=== PATIENT | female | born 2000 | race Hispanic/Latino ===

== ENCOUNTER 2024-09-23 19:46 | Emergency (ER) | payer OTHER, SELFPAY ==
[2024-09-23 19:53] VITALS: BP 159/92; PULSE 104; RESP 15; TEMP 37.1; O2SAT 100
--- OUTSIDE RECORDS SUMMARY | 2024-09-23 20:13 | XMS_ITS | Clinical Summary ---
Author Organization [facility] Address [address] [place] [address] Care Team Providers Care Lpn Name Role Phone Aj Hernandez MD Primary Care Provider [phone] Allergies No known active allergies Medications vitamin ferrous fumarate-folic () 28 mg iron- 800 mcg tabletIndications :Encounter for supervision of other normal in third trimester Take 1 tablet by mouth daily 1 po qd 90 tablet 3 12/16/19 24 025 Active ibuprofen (ADVIL,MOTRIN) 600 mg tabletIndications :Cramps Take 1 tablet (600 mg total) by mouth every 6 (six) hours 120 tablet 02/15/20 24 Active PNV with usfqbdm-mgsg-UV 27 mg iron- 1 mg tabletIndications :Vitamin Deficiency Prevention Take 1 tablet by mouth daily 30 tablet 3 02/15/20 24 Active polyethylene glycol (MIRALAX) 17 gram/dose bulk powderIndications :constipation Take 17 g by mouth daily 595 g 1 02/15/20 24 Active acetaminophen (TYLENOL) 325 mg tablet Take 2 tablets (650 mg total) by mouth every 6 (six) hours as needed for pain 120 tablet 02/15/20 24 Active docusate sodium (COLACE) 100 mg capsuleIndication s:constipation,St ool Softener Take 1 capsule (100 mg total) by mouth 2 (two) times a day as needed for constipation 30 capsule 02/16/20 24 Active norethindrone (MICRONOR) 0.35 mg tabletIndications : Contraception Take 1 tablet (0.35 mg total) by mouth daily 28 tablet 12 02/16/20 24 025 Active Active Problems Problem Noted Date Diagnosed Date Normal labor 02/14/2024 care following vaginal delivery 02/13 Overview (02/16/2024): # ID: Afebrile. No signs/symptoms of infection. # Heme: EBL 200 mL. Hemodynamically stable. Admit Hgb 13.5. # CV/Pulm: MR BPs <4h apart prior to delivery, not meeting criteria for gHTN. Asymptomatic; denies visual changes, BERRIOS, RUQ pain. # GI/: Tolerating PO. Voiding spontaneously. # Pain: Controlled with above regimen. # MOC: Progestin-only pills. # MOF: . Urine drug screen not indicated. Patient informed of results: N/A. # Post DVT prophylaxis: The patient has the following MAJOR risk factors none and the following MINOR risk factors none. SCDs ordered for VTE prophylaxis. # Disposition: Follow up task sent to [facility] scheduling pool. Desires discharge home today. Trichomonal vaginitis during in third trimester 12/19/2023 Overview (01/16/2024): Trich pos 12/15. Rx sent for flagyl 500mg BID x7d. JUWAN negative Chlamydia trachomatis infect ion in mother during third trimester of 12/19/2023 Overview (01/16/2024): Chlamydia pos 12/15. Rx sent for azithromycin 1g once. JUWAN negative Encounter for supervision of normal in third trimester 12/16/2023 Overview (02/14/2024): 1st Trimester: [x] Dating Criteria: L=3 by BSUS at 12/15 appt (L=1 per patient) [x] Labs: Rh pos, Ab neg, CBC wnl, Rubella immune, VZV immune, HIV NR, RPR NR, HepBSAg neg, Hep C Ab NR [x] GC/CT/Trich: neg/pos/pos (see separate problem) [x] UCx: CISG [x] vitamins prescribed 12/15 [] Genetic Screening: [] CF/SMA carrier screening: [] Hgb electrophoresis: [x] Pap: NILM 12/09/23 [] EPDS: PNBHS referral (if indicated) [] ASA at 12 weeks (if indicated) [x] DM screening: HgbA1c 5.1% [x] Feeding Preferences Survey: benefits of discussed with patient and partner 2nd Trimester: [x] Anatomy ultrasound: EFW 10%tile, AC 12%tile, posterior placenta, TAWANNA wnl [x] CBC: wnl [x] 1hr GTT (24-28wks): in [place], normal per patient > 102 [] Flu Shot (Feb-May): [x] Tdap (27-36wks): given 12/15 [] Rhogam (if Rh neg): na [] Childbirth classes discussed [x] education (colostrum, expected breast changes, plan for RTW) and breast pump ordered [x] 2nd trimester education packet 3rd Trimester: [x] CBC/HIV/RPR/T&S: wnl/NR/NR/O pos [x] GBS: neg 01/11 [x] GC/CT/Trich (if indicated): neg x3 [] RSV Vaccine (32-36w6d, Feb-Jun): [x] Final discussion (S2S, Baby Friendly, LC Support, PP experience) [x] 3rd trimester education packet Counseling [x] Method of delivery: anticipate vaginal [] Bottle of CHG 4% and hand out provided @ 36wks (if planned) [] Timing of delivery: for spontaneous labor, considering scheduling 40w IOL at 38w appt [x] MOC: POPs [x] MOF: breast [] Virtual 2 week visit candidate ([place] resident, 1-2nd degree perineal laceration, minimal /delivery/ complications) [x] education: completed in all 3 trimesters [x] Doctorate Of Chiropractic: provided list 01/19 [x] Car seat discussed [x] PP depression counseling High risk teen in third trimester 02/04 (spontaneous vaginal delivery) 02/20/2018 Resolved Problems Problem Noted Date Diagnosed Date Resolved Date Normal labor 02/19/2018 02/20/2018 Immunizations Immunization Administration Dates Next Due Influenza, Quadrivalent, Spl it, Preservative Free, Intramuscular 02/21/2018(Deferred: Patient Refused) MMR 02/16/2024(Deferred: No longer n eeded) Tdap 12/16/2023 Varicella 02/16/2024(Deferred: No longer n eeded) Family History Medical History Relation Name Comments Diabetes Paternal Grandfather Relation Name Status Comments Paternal Grandfather Social History Tobacco Use Types Packs/Day Years Used Date Smoking Tobacco: Never Tobacco Cessation:Counseling Given: Not Answered Alcohol Use Standard Drinks/Week Comments No 0 (1 standard drink = 0.6 oz pur e alcohol) [facility] Utilities Answer Date Recorded In the past 12 months has e [employer], gas, oil, or water code-laboration threatened to shut off services in your home? No 02/16/2024 Social Connection and Isolat ion Panel [NHANES] Answer Date Recorded In a typical week, how many times do you talk on the phone with family, friends, or neighbors? More than three times a week 02/14/2024 How often do you get togethe r with friends or relatives? Twice a week 02/14/2024 How often do you attend chur ch or mu-ism services? Never 02/14/2024 Do you belong to any clubs o r organizations such as faith groups, unions, fraternal or athletic groups, or school groups? No 02/14/2024 How often do you attend meet ings of the clubs or organizations you belong to? Never 02/14/2024 Are you , , di vorced, , never , or living with a partner? Living with partner 02/14/2024 Overall Financial Resource Strain (CARDIA) Answe r Date Recorded How hard is it for you to pa y for the very basics like food, housing, medical care, and heating? Not very hard 02/16/2024 PHQ-2 Answer Date Recorded PHQ-2 Total Score (If total score is 3 or more points, staff should administer the PHQ-9) 0 02/14/2024 [facility] - Occupational Stress Questionnaire Answer Date Recorded Do you feel stress - tense, restless, nervous, or anxious, or unable to sleep at night because your mind is troubled all the time - these days? Patient declined 02/14/2024 Exercise Vital Sign Answer Date Recorde d On average, how many days pe r week do you engage in moderate to strenuous exercise (like a brisk walk)? Patient declined On average, how many minutes do you engage in exercise at this level? Patient declined 02/14/2024 Hunger Vital Sign Answer Date Recorded Within the past 12 months, y ou worried that your food would run out before you got the money to buy more. Never true 02/16/20 24 Within the past 12 months, t he food you bought just didn't last and you didn't have money to get more. Never true 02/16/2024 PRAPARE - Transportation Answer Date Re corded In the past 12 months, has l ack of transportation kept you from medical appointments or from getting medications? No 02/04 In the past 12 months, has l ack of transportation kept you from meetings, work, or from getting things needed for daily living? No 02/16/2024 Housing Stability Vital Sign Answer Antwon e Recorded In the last 12 months, was t here a time when you were not able to pay the mortgage or rent on time? No 02/16/2024 In the past 12 months, how m any times have you moved where you were living? 1 02/16/2024 At any time in the past 12 m [facility], were you homeless or living in a senior living (including now)? No 02/16/2024 Personal Safety Answer Date Recorded Have you ever been in or are you currently in a harmful physical or emotional relationship or is someone making you feel afraid or unsafe? Denies 02/14/2024 Comments No Sex and Gender Information Value Date Recorded Sex Assigned at Not on file Legal Sex Female 12:07 AM CDT Gender Identity Not on file Sexual Orientation Not on file Obstetrics History Para Term AB IAB SAB Ectopic Multiple Livin g Live Births 3 3 2 1 0 0 2 2 Date Outcome GA Total Labor Labor/2nd/3rd Weight Sex Type Anes PTL Brielle A1 A5 Name Clin 2017 Term 39w 0d Vag-Sp ont Livin g Complications:None 2020 20w 0d D&E 2023 Term 40w 4d 0h 19m 0h 14m/0h 05m 3.37 kg (7 lb 6.9 oz) F Vagina l Epidur al N Livin g 8 9 Iceli nn Soledad s-Lakhwinder res Stacia, Kim Cho MD Complications:None Delivery Location:[facility] Main C ampus ([facility] 58LD) Last Filed Vital Signs Vital Sign Reading Time Taken Comments Blood Pressure 120/73 02/16/2024 7:40 AM CDT Pulse 76 02/16/2024 7:40 AM CDT Temperature 36.7 C (98.1 F) 02/16/2024 7:40 AM CDT Respiratory Rate 16 02/16/2024 7:40 AM CDT Oxygen Saturation 97% 02/16/2024 7:40 AM CDT Inhaled Oxygen Concentration - - Weight 73.9 kg (163 lb) 02/14/2024 8:29 AM CDT Height 160 cm (5' 3 ) 02/14/2024 8:29 AM CDT Body Mass Index 28.87 02/14/2024 8:29 AM CDT Plan of Treatment Health Maintenance Due Date Last Done Comments Regular Well Visit/Exam 18-64 2018 Influenza Vaccine (#1) 2024 Cervical Cancer Screening 12/15/2024 12/16/2023 Chlamydia and Gonorrhea (GC/CT) Screening 01/11/2025 01/12/2024, 12/16/2023 Depression Screening 02/13/2025 02/14/2024, 02/14/20 24 DTaP/Tdap/Td Vaccine (7 - Td or Tdap) 12/15/2033 12/16/2023, 11/30/2017, 02/02/2016, Additional history exists Pneumococcal vaccine <65 Aged Out 001, 2000, 2000 No longer eligible based on patient's age to complete this topic Hepatitis B Screening Completed 08/22/2013 , 07/18/2012, 2000 HPV Vaccines Completed 02/23/2016, 03/30/2010 Varicella Vaccines Completed 03/02/2016, 02/02/2016 Hepatitis C Screening Completed 12/16/2023 Procedures Procedure Name Priority Date/Time Associated Diagnosis Comments N. GONORRHOEAE/C. TRACHOMATIS AMPLIFICATION Routine 01/12/2024 4:35 PM CDT Chlamydia trachomatis infection in mother during third trimester of HEPATITIS C ANTIBODY Routine 12/16/2023 10:13 AM CDT Encounter for supervision of other normal in third trimester PAP ONLY Routine 12/16/2023 10:09 AM CDT Encounter for supervision of other normal in third trimester from Last 3 Months or Most Recently Relevant to Health Maintenance Results * N. gonorrhoeae/C. trachomatis Amplification Urine (01/12/2024 4:35 PM CDT) C. trachomatis Not Detected [facility] N. gonorrhoeae Not Detected [facility] Comment: Interpretive Data This assay detects Chlamydia trachomatis and Neisseria gonorrhoeae by nucleic acid amplification testing (NAAT). This assay has been cleared by the [place] Food and Drug administration. The performance characteristics of this test have been verified by the [facility] Molecular Infectious Disease laboratory. The performance characteristics of this test have not been evaluated in individuals less than 14 years of age. Current Interpretive Data was last revised on 2023. Urine (None) 01/12/2024 4:35 PM CDT 01/12/2024 5:31 PM CDT Jabari Sarmiento MD LAB MICROBIOLOGY - [facility] ORDERABLES Final Result Performing Organization Address City/Va Hospital/ZIP Co de Phone Number [facility] [place] [address] [facility] * Hepatitis C antibody Blood (12/16/2023 10:13 AM CDT) Hep C Ab Nonreactive Nonreactive Comment:Antibodies to HCV no t detected. Does NOT exclude the possibility of recent exposure to HCV. Current interpretive data was last revised on 22 Blood 12/16/2023 10:1 3 AM CDT 12/16/2023 10:49 AM CDT Oumou Posadas MD LAB MICROBIOLOGY - GENERAL ORDERABLES Final Result [facility] [place] [address] * Pap Only (Cytology Component) (12/16/2023 10:09 AM CDT) Thin prep (Pap test) 12/16/2023 10:09 AM CDT 12/16/2023 4:01 PM CDT Narrative PATHOLOGY [facility] - 12/23/2023 2:21 PM CDT EPIC results best viewed via link to PDF [facility] [place] [address] Note to Patients: This report may contain a detailed description of human tissue sent by a health care provider to the laboratory for pathologic evaluation. The content of this report is essential for diagnosis and may provide important critical findings. This information may be unfamiliar to patients to review without a medical professional present. It is advised that the patient review this report in the presence of a health care provider who can answer questions and explain the details. CYTOPATHOLOGY REPORT FINAL Patient Name: KATHERINE ROWE Gender: F : 2000 (Age: 23) Address: [address] [place] [address] Hospital #: [id number] Service: UNKNOWN Location: Patient Type: [facility] SPECIMEN Taken: 12/16/2023 Received: 12/16/2023 Accessioned: 12/20/2023 Reported: 12/23/2023 Physician(s): Oumou Posadas MD FINAL INTERPRETATION SOURCE OF SPECIMEN Liquid based Thin Prep pap: STATEMENT OF ADEQUACY - Satisfactory for evaluation - Endocervical cells/transformation zone sample absent GENERAL CATEGORIZATION: - Negative for squamous intraepithelial lesion or malignancy INTERPRETATION: - Shift in annie suggestive of bacterial vaginosis tc/12/23/2023 14:21 BRADLEY Waller (ASCP) Report Electronically Reviewed and Signed Out By BRADLEY Waller (ASCP) 12/23/2023 14:21:39 Cervicovaginal Cytology (Pap Test) Disclaimer: The Pap test is a screening test used to detect cervical cancer and its precursors; it is not a diagnostic procedure. False negative and false positive results do occur. Pap test results should be interpreted in the context of pertinent clinical information and biopsy results as indicated. [facility] Clinical Laboratory Improvement Amendments (CLIA) mandate that cytologic and histologic results be correlated for laboratory quality control manager & improvement standards. FOR ALL HIGH-GRADE CASES we request submission of follow-up histological material and/or reports that have not been previously provided so that we may fulfill said required standards. Gross Description A. Liquid based Thin Prep pap: Cervical/vaginal - Screening ThinPrep Clinical Diagnosis and History Last Menstrual Period: unknown The patient is a 23 year old woman with screening. Report Images and scanned documents, if included only viewable in PDF version The performance characteristics of some immunohistochemical stains, in-situ hybridization and fluorescence in-situ hybridization tests and immunophenotyping by flow cytometry cited in this report (if any) were determined by the Surgical Pathology Department at [facility] as part of an ongoing quality assurance associate program and in compliance with federally mandated regulations drawn from the Clinical Laboratory Improvement Act of 1988 (CLIA '88). Some of these tests rely on the use of analyte specific reagents and are subject to specific labeling requirements by the [place] Food and Drug Administration. Such diagnostic tests may only be performed in a facility that is certified by the Department of Health and Human Services as a high complexity laboratory under CLIA '88. The FDA has determined that such clearance or approval is not necessary. This test is used for clinical purposes. It should not be regarded as investigational or for research. Nevertheless, federal rules concerning the medical use of analyte specific reagents require that the following disclaimer be attached to the report: This test was developed and its performance characteristics determined by the Surgical Pathology Department of [facility]. It has not been cleared or approved by the U. S. Food and Drug Administration. Oumou Posadas MD LAB CYTOLOGY ORD ERABLES Final Result PATHOLOGY [facility] 3rd Floor [place], [place] [phone] from Last 3 Months or Most Recently Relevant to Health Maintenance Insurance [facility] Advance Directives For more information, please contact: [phone] * Full Code (Latest Code Status on File) Date Activated Date Inactivated Comments 02/14/2024 12:57 PM 02/16/2024 4:49 PM * Full Code Date Activated Date Inactivated Comments 02/14/2024 8:38 AM 02/14/2024 12:57 PM Full CPR in case of cardiopulmonary arrest * Full Code Date Activated Date Inactivated Comments 02/19/2018 8:26 PM 02/21/2018 7:56 PM * Full Code Date Activated Date Inactivated Comments 02/19/2018 9:51 AM 02/19/2018 8:26 PM Full CPR in case of cardiopulmonary arrest Care Teams Lpn Relationship Specialty Start Date End Date Aj Hernandez MD PCP - General 01/28/18
--- OUTSIDE RECORDS SUMMARY | 2024-09-23 20:13 | XMS_ITS | Referral Summary ---
Author Organization [facility] Address [address] [place] [address] Care Team Providers Care Online Marketing Analyst Name Role Phone Aj Hernandez MD Primary Care Provider [phone] Allergies No known active allergies Medications vitamin [...] 120 tablet 02/15/20 24 Active PNV with ptiaeyj-tajx-TT 27 mg iron- 1 mg tabletIndications :Vitamin [...] # Disposition: Follow up task sent to [facility] scheduling pool. Desires discharge home today. 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 Never 02/14/2024 Do you belong to any clubs o r organizations such as jain groups, unions, fraternal or athletic groups, or [...] staff should administer the PHQ-9) 0 02/14/2024 [facility] of Occupat ional Health - Occupational Stress [...] any time in the past 12 m [facility], were you homeless or living in a fdc (including now)? No 02/16/2024 Personal Safety Answer [...] on file Sexual Orientation Not on file Last Filed Vital Signs Vital Sign Reading [...] 02/14/2024 8:29 AM CDT Plan of Treatment Not on file Procedures Procedure Name Priority Date/Time Associated Diagnosis [...] 4:35 PM CDT) C. trachomatis Not Detected [facility] N. gonorrhoeae Not Detected [facility] Comment: Interpretive Data This assay detects Chlamydia trachomatis and Neisseria gonorrhoeae by nucleic acid amplification testing (NAAT). This assay has been cleared by the [place] Food and Drug administration. The performance characteristics of this test have been verified by the [facility] Molecular Infectious Disease laboratory. The performance characteristics of this test have not been evaluated in individuals less than 14 years of age. Current Interpretive Data was last revised on 2023. Urine (None) 01/12/2024 4:35 PM CDT 01/12/2024 5:31 PM CDT Jabari Sarmiento MD LAB MICROBIOLOGY - [facility] ORDERABLES Final Result [facility] Department [place] [address] [facility] * Hepatitis C antibody Blood (12/16/2023 10:13 AM CDT) Pathologist [facility] Hep C Ab Nonreactive Nonreactive Comment:Antibodies to HCV no t detected. Does NOT exclude the possibility of recent exposure to HCV. Current interpretive data was last revised on 22 Blood 12/16/2023 10:1 3 AM CDT 12/16/2023 10:49 AM CDT us Oumou Posadas MD LAB MICROBIOLOGY - GENERAL ORDERABLES Final Result [facility] Department [place] [address] * Pap Only (Cytology Component) (12/16/2023 10:09 AM CDT) Thin prep (Pap test) 12/16/2023 10:09 AM CDT 12/16/2023 4:01 PM CDT Narrative PATHOLOGY [facility] - 12/23/2023 2:21 PM CDT EPIC results best viewed via link to PDF [facility] [place] [address] Note to Patients: This report may contain [...] Gender: F : 2000 (Age: 23) Address: [address] [place] [address] Hospital #: [id number] Service: UNKNOWN Location: Patient Type: [facility] SPECIMEN Taken: 12/16/2023 Received: 12/16/2023 Accessioned: 12/20/2023 Reported: 12/23/2023 Physician(s): Oumou Posadas MD FINAL INTERPRETATION SOURCE OF SPECIMEN Liquid based Thin Prep pap: STATEMENT OF ADEQUACY - Satisfactory for evaluation - Endocervical cells/transformation zone sample absent GENERAL CATEGORIZATION: - Negative for squamous intraepithelial lesion or malignancy INTERPRETATION: - Shift in annie suggestive of bacterial vaginosis tcg/12/23/2023 14:21 BRADLEY Waller (ASCP) Report Electronically Reviewed [...] clinical information and biopsy results as indicated. [facility] Clinical Laboratory Improvement Amendments (CLIA) mandate that cytologic and histologic results be correlated for laboratory customer quality specialist & improvement standards. FOR ALL HIGH-GRADE CASES [...] determined by the Surgical Pathology Department at [facility] as part of an ongoing quality assurance engineer program and in compliance with federally mandated [...] determined by the Surgical Pathology Department of [facility]. It has not been cleared or approved by the [place]. S. Food and Drug Administration. Oumou Posadas MD LAB CYTOLOGY ORD ERABLES Final Result PATHOLOGY [facility] 3rd [address] [place], [place] [phone] from Last 3 Months or Most Recently Relevant to Health Maintenance Insurance Advance Directives For more information, please contact: [phone] * Full Code (Latest Code Status on [...] in case of cardiopulmonary arrest Care Teams Online Marketing Analyst Relationship Specialty Start Date End Date Aj Hernandez MD PCP - General 01/28/18
--- OUTSIDE RECORDS SUMMARY | 2024-09-23 20:13 | XMS_ITS | Continuity of Care Document ---
Author Organization [facility] Address [address] [place] [address] Phone Care Team Providers Care Senior Benefits Analyst Name Role Phone Adeline Michael MD Unavailable Unavailable Procedures Procedure Date OFFICE O/P EST 5 MIN URINE TEST, BY VISUAL [employer] MPARISON METHODS Results Test Name Date and Time Measure Units Reference Range Abnormal Flag Status Commen ts Panel Description: Choriogon adotropin.beta subunit ( test) [Presence] in Urine Final - Urine 14:19:50 Positive Negative A Final Advance Directives Directive Yes / No Effective Date File Name No Information Encounters Encounter Description Practice Location Reason(s) For Visit Diagnoses Date Provider Providers Copied on Encounter OFFICE O/P EST 5 MIN [facility] , [address], [place], [place], [id number], tel:[phone] [facility] [place] Encounter for test, result positiveEncounter for test, result unknown Fernanda Lr. [address], [place], [place], [id number] , . tel:[phone] Family History Family Member Type Diagnosis Age At Onset No Information Payers Payer name Insurance type Covered republican ID Authoriza tion(s) No Information Social History Type Description Quantity Date Captured Comments Sex Female Smoking Status No Information Chief Complaint And Reason For Visit No Information Reason For Referral Reason For Referral No Information History Of Present Illness Encounter Date Complaint History Of Prese nt Illness No Information Functional Status Date Functional Assessmen t No Information Instructions Date Instruction Additional Infor mation No Information Assessments Type Assessment Date No Information Patient Care Teams Name Effective Dates (start - stop) Status Members No Information
--- OUTSIDE RECORDS SUMMARY | 2024-09-23 20:13 | XMS_ITS | Continuity of Care Document ---
Author Organization [facility] [place] Address [address] [place] [id number] Phone Care Team Providers Care Soil Scientist Name Role Phone PCS, Other Non Billable Unavailable Unavaila ble Allergies, Adverse Reactions, Alerts Substance Reaction Status Criticality No Known Allergies Active No Inform ation Medications Medication Instructions Dosage Effective Dates (start - stop) Status Comments No Drug Therapy Prescribed Procedures Procedure Date Immunization Dummy Code CHICKEN POX VACCINE, SC Immunization Dummy Code MMR VACCINE, SC OFFICE/OUTPATIENT VISIT, EST Immunization Dummy Code Immunization Dummy Code POLIOVIRUS, IPV, SC/IM Immunization Dummy Code HPV9 OFFICE/OUTPATIENT VISIT, EST Immunization Dummy Code TDAP VACCINE >7 IM Immunization Dummy Code CHICKEN POX VACCINE, SC Immunization Dummy Code MENINGOCOCCAL VACCINE, IM PREV VISIT, NEW, AGE 12-17 As per patient privacy policy some of the clinical information may not be visible. Advance Directives Directive Yes / No Effective Date File Name No Information Encounters Encounter Description Practice Location Reason(s) For Visit Diagnoses Date Provider Providers Copied on Encounter [facility] /[facility], [address] [place] [address], [id number], [place] tel:[phone] Call Center No Information PCS Other Non Billable. [address] [place] [address], [id number], [place]. tel:[phone] [facility], [address] [place] [address], [address], [place] tel:[phone] [facility] General Medicine Vaccines (chief complaint) Encounter for immunization Lisa Barboza. [address] [place] [address], [id number], [place]. tel:[phone] OFFICE[facility]OUTPAT [facility], [facility], [address] [place] [address], [address], [place] tel:[phone] P B General Medicine Vaccines (chief complaint) Encounter for immunization Amberi Tamra. [address] [place] [address], [id number], [place]. tel:[phone] PREV VISIT, NEW, AGE 12-17 [facility] /[facility], [address] [place] [address], [address], [place] tel:[phone] P [facility] General Medicine School Physical (chief complaint) School physical examBehind on immunizations Lisa Barboza. [address] [place] [address], [id number], [place]. tel:[phone] [facility] /[facility], [address] [place] [address], [address], [place] tel:[phone] Z [facility] CONV No Information [facility]. [address] [place] [address], [id number], [place]. Family History Family Member Type Diagnosis Age At Onset Maternal grandfather Problem (finding) hypertension Maternal grandfather Problem (finding) diabetes mellit us type 2 Immunizations Vaccine Date Status Comments Varicella administered Source: New Imm unization Record MMR administered Source: New Imm unization Record Hep A (ped/adol, 2 dose) administered Nereyda rce: New Immunization Record Polio, Inactive administered Source: New Immunization Record HPV (9-valent) administered Source: New I mmunization Record Tdap administered Source: New Imm unization Record Varicella administered Source: New Imm unization Record MCV4 administered Source: New Imm unization Record hepatitis B vaccine, pediatr ic or pediatric/adolescent dosage administered Source: Manuel riveraraimundo Written Record rubella virus vaccine administered Source : Parents Written Record measles virus vaccine administered Source : Parents Written Record Hep B (ped/adol, 3 dose) administered Nereyda rce: Parents Written Record HPV, unspecified formulation administered Source: Parents Written Record HIB 3 DOSE SERIES administered Source: Ne w Immunization Record PCV7, PNEUMOCOCCAL CONJUGATE administered Source: New Immunization Record DTAP administered Source: New Imm unization Record HIB 3 DOSE SERIES administered Note: RT ; Source: New Immunization Record PCV7, PNEUMOCOCCAL CONJUGATE administered Note: LT ; Source: New Immunization Record DTAP administered Note: RT ; Sour ce: New Immunization Record INJECTABLE POLIOVIRUS administered Note: LT ; Source: New Immunization Record PCV7, PNEUMOCOCCAL CONJUGATE administered Source: New Immunization Record DTAP administered Source: New Imm unization Record INJECTABLE POLIOVIRUS administered Source : New Immunization Record HIB AND HEP B COMBO administered Source: New Immunization Record Payers Payer name Insurance type Covered green party ID Authoriza tion(s) [employer] Medicaid Medical MC [id number] Social History Type Description Quantity Date Captured Comments Alcohol Use Details Unknown Caffeine Use Details Unknown Tobacco Use Status No Information Smoking Status No Information Sex Female Chief Complaint And Reason For Visit No Information History Of Present Illness Encounter Date Complaint History Of Prese nt Illness Vaccines pt here for MMR, and Varicella shots Vaccines pt here for william ursula of shots School Physical Going into 9th [employer]- last dental visit 1 year ago- no concerns at this time. School Physical (comments) : Ursula moe here from [place]. Medications Administered Medication Instructions Dosage Effective Dates (start - stop) Status Comments No Drug Therapy Prescribed Instructions Date Instruction Additional Infor pili -MMR and varicella given today R elated to Encounter for immunization -Hep A, HPV #2 and I PV today-f/u in 2 weeks for MMR, varicella and flu vaccine Related to Encounter for immunization -RTC for vaccines in one month R elated to Behind on immunizations -Tdap, Varciella and menactra today-School form completed-Anticipatory guidance given Related to School physical exam Assessments Type Assessment Date No Information Patient Care Teams Name Effective Dates (start - stop) Status Members No Information
--- NOTE | 2024-09-23 20:48 | ED_ITS ---
HPI - Dental/Oral General Chief complaint: Dental/Oral Stated complaint: toothache Time Seen by Provider: 09/23/24 19:50 Source: patient Mode of arrival: ambulatory Limitations: no limitations History of Present Illness HPI Narrative: This is a 24-year-old female that presents to the emergency department for toothache. Ongoing since this morning. Denies fevers. MD Complaint: tooth pain Location: Tooth # (19, 18) Related Data Allergies Allergy/AdvReac Type Severity Reaction Status Date / Time No Known Allergies Allergy Verified 09/23/24 20:53 Review of Systems Review of Systems: CONSTITUTIONAL: Denies fever ENT: Reports dentalgia All systems reviewed & are unremarkable except as noted in HPI and below PMFSH Past Medical History Medical History (Updated 09/23/24 @ 20:57 by Marta Daily PA-C) No active medical problems Social History Social History (Updated 09/23/24 @ 20:57 by Marta Daily PA-C) Smoking status: Never smoker Exam Narrative: GENERAL: Well-appearing, well-nourished, and in no acute distress. HEAD: Normocephalic, atraumatic. EYES: EOMI. ENT: Nares clear, no rhinorrhea or epistaxis. Mucous membranes moist. Oropharynx without tonsillar hypertrophy exudate or other lesions. Poor dentition. Moderate to severe gingivitis. Tooth numbers 19 and 18 tender to palpation. No surrounding edema or fluctuance to suggest abscess CHEST: No respiratory distress. HEART: Regular rate EXTREMITIES: Normal range of motion. No edema. SKIN: Warm, dry, no rash. NEURO: No focal deficits. Alert and oriented x3. PSYCH: Normal mood and affect Course Vital Signs Vital signs: Vital Signs Temperature 98.7 F 09/23/24 19:53 Pulse Rate 104 H 09/23/24 19:53 Respiratory Rate 15 09/23/24 19:53 Blood Pressure 159/92 H 09/23/24 19:53 Pulse Oximetry 100 09/23/24 19:53 Oxygen Delivery Room Air 09/23/24 19:53 Temperature 98.7 F 09/23/24 19:53 Pulse Rate 104 H 09/23/24 19:53 Respiratory Rate 15 09/23/24 19:53 Blood Pressure 159/92 H 09/23/24 19:53 Pulse Oximetry 100 09/23/24 19:53 Oxygen Delivery Room Air 04/20/25 19:53 MDM - Dental/Oral MDM Narrative Medical decision making narrative: Patient presents to the emergency department for dentalgia. She does have notable gingivitis. Teeth 19 and 18 are tender to palpation. No overt abscess on exam. Patient will be started on oral antibiotics and given chlorhexidine rinse. Instructed on the importance of seeing a dentist. She was given warnings to return to the ER Differential Diagnosis Differential diagnosis: Likely dental caries, toothache, dental abscess and other (Gingivitis) Critical Care Time Critical Care Time Critical Care Time: No Discharge Plan Discharge Clinical Impression: Toothache Patient Disposition: Home Condition: Stable Instructions: Antibiotic Form, Toothache (ED) Additional Instructions: Return to the Emergency Department if you experience fever >101, increasing swelling and redness of your tooth, or any other symptoms that are concerning to you Take antibiotic as prescribed. Tylenol or Ibuprofen as needed for pain. Chlorhexidine daily Follow up with your dentist Patient Language: [place] Prescriptions: New amoxicillin-pot clavulanate 875-125 mg tablet 1 tablet PO Q12H 7 Days Qty: 14 0RF chlorhexidine gluconate 0.12 % mouthwash 15 ml mucous membrane DAILY Qty: 118 0RF Follow-up/Referrals: UNKNOWN,DOCTOR [Primary Care Provider] -
[2024-09-23] MEDS: HYDROcodone/acetaminophen (*CRX) 5-325 MG TABLET 1 TAB PO (21:05)
== END 2024-09-23 21:05 | disposition home or self-care (01) ==
PROVIDERS: Emergency Provider Physician Assistant
DX: K08.89 Other specified disorders of teeth and supporting structures (principal)
CPT/HCPCS: 99283; A9270